=== PATIENT | male | born 1960 | race Caucasian/White ===

== ENCOUNTER → 2016-11-23 | Outpatient (CLI) | payer OTHER ==
[~2016-11-23] MED LIST: OMPR20CCR PO
[2016-11-23 08:21] LABS: HEMATOCRIT 44.2 % (39.0-51.0); MEAN CELL VOLUME 86.5 FL (80.0-100.0); MEAN CORPUSCULAR HGB CONC 34.6 % (32.0-36.0); PLATELET COUNT 175 TH/MM3 (150-450); RED BLOOD COUNT 5.11 MIL/MM3 (4.50-5.90); RED CELL DISTRIBUTION WIDTH 12.6 % (11.6-17.2); REVIEW FLAG FINAL; WHITE BLOOD COUNT 6.8 TH/MM3 (4.0-11.0)
[2016-11-23 08:56] LABS: ALKALINE PHOSPHATASE 61 U/L (45-117); ALT (GPT) 42 U/L (12-78); ANION GAP 7 MEQ/L (5-15); AST (GOT) 21 U/L (15-37); BICARBONATE 28.8 MEQ/L (21.0-32.0); BLOOD UREA NITROGEN 17 MG/DL (7-18); CHLORIDE 105 MEQ/L (98-107); GLOMERULAR FILTRATION RATE 86 ML/MIN (>89); GLUCOSE,FASTING 99 MG/DL (74-99); HDL CHOLESTEROL 51.9 MG/DL (40.0-60.0); LDL CHOLESTEROL 102 MG/DL (0-99); POTASSIUM 4.4 MEQ/L (3.5-5.1); SODIUM (NA) 141 MEQ/L (136-145); TOTAL BILIRUBIN ADULT 0.7 MG/DL (0.2-1.0)
== END ==
LOC: CLAB 07:53
PROVIDERS: ATTEND Family Medicine
DX: Z00.00 Encounter for general adult medical examination without abnormal findings (principal); Z12.5 Encounter for screening for malignant neoplasm of prostate
CPT/HCPCS: 36415; 80053; 80061; 84153; 84443; 85027

== ENCOUNTER → 2017-09-20 | Day surgery (SDC) | payer OTHER ==
[~2017-09-20] MED LIST changes: +LACTATED RINGER'S 1000 ML INJ 1,000 ML ONE; +LIDOCAINE HCL 1% 50 ML VIAL ONE; +MIDAZOLAM HCL 2 MG/2 ML VIAL ONE; +PROPOFOL 500 MG/50 ML BTL IV ONE; +TRIAMCINOLONE ACETONIDE 40 MG/ML VIAL ONE
--- NOTE | 2017-09-20 18:16 | TN ---
cc: EDUARDO JEAN M.D. DATE OF SURGERY 09/20/2017 PREOPERATIVE DIAGNOSIS Right hip osteoarthritis, arthrogryposis (stiffness). POSTOPERATIVE DIAGNOSIS Right hip osteoarthritis, arthrogryposis (stiffness). PROCEDURE Right hip intra-articular steroid injection, fluoroscopic guidance of needle, manipulation, under anesthesia. SURGEON Naomi Jean MD [facility] [employer]. SPECIMENS SENT None. ESTIMATED BLOOD LOSS None. COMPLICATIONS None. ANESTHESIA General. DRAINS None. CONDITION Stable. PLAN OF ACTIVITY As per orders. PROCEDURE DETAILS The patient was brought to the operating room and had satisfactory anesthesia by Dr. Agnes Wang of the department of anesthesia. The right hip and lower extremity was prepped and draped in usual sterile manner. Under fluoroscopic guidance an 18 gauge spinal needle was introduced in to the right hip joint. The hip was injected with 1 mL of Kenalog 40 and 5 mL of 1% lidocaine plain. The needle was withdrawn. The hip was manipulated under anesthesia. Flexion was to 110 degrees, abduction was to 35 degrees with mild restrictive rotation. Band-Aid placed over injection site. The patient tolerated the procedure well and arrived in the recovery room in stable and satisfactory condition. X-ray of the right hip one view AP status post right hip manipulation, no obvious fracture, dislocation, subluxation here. Right hip osteoarthritis, satisfactory placement of 18 gauge spinal needle in the right hip joint. MD PATTIE Wilkinson/ISSA /5:36 PM /6:07 PM
== END | disposition home or self-care (01) ==
LOC: ESDC 14:25
PROVIDERS: ATTEND Orthopaedic Surgery Orthopaedic Surgery of the Spine
DX: M16.11 Unilateral primary osteoarthritis, right hip (principal); Q68.8 Other specified congenital musculoskeletal deformities
CPT/HCPCS: 01200; 27275; 73501; 76000; J2250; J3010; J3301; J7120

== ENCOUNTER → 2018-02-02 | Outpatient (CLI) | payer OTHER ==
[~2018-02-02] MED LIST changes: -LACTATED RINGER'S 1000 ML INJ 1,000 ML ONE; -LIDOCAINE HCL 1% 50 ML VIAL ONE; -MIDAZOLAM HCL 2 MG/2 ML VIAL ONE; -PROPOFOL 500 MG/50 ML BTL IV ONE; -TRIAMCINOLONE ACETONIDE 40 MG/ML VIAL ONE
[2018-02-02 14:21] LABS: BASOPHIL % 0.6 % (0.0-2.0); EOSINOPHIL # 0.1 TH/MM3 (0-0.4); EOSINOPHIL % 1.7 % (0.0-4.0); HEMOGLOBIN 16.7 GM/DL (13.0-17.0); LYMPH % 26.2 % (9.0-44.0); LYMPHOCYTE # 1.6 TH/MM3 (1.0-4.8); MEAN CELL VOLUME 88.2 FL (80.0-100.0); MEAN PLATELET VOLUME 9.6 FL (7.0-11.0); MONO % 6.5 % (0.0-8.0); MONOCYTE # 0.4 TH/MM3 (0-0.9); PLATELET COUNT 196 TH/MM3 (150-450); RED BLOOD COUNT 5.55 MIL/MM3 (4.50-5.90); RED CELL DISTRIBUTION WIDTH 12.9 % (11.6-17.2); WHITE BLOOD COUNT 6.1 TH/MM3 (4.0-11.0)
[2018-02-02 14:51] LABS: AST (GOT) 68 U/L (15-37); BICARBONATE 27.8 MEQ/L (21.0-32.0); BLOOD UREA NITROGEN 15 MG/DL (7-18); CALCIUM 8.7 MG/DL (8.5-10.1); CHLORIDE 106 MEQ/L (98-107); CHOLESTEROL 162 MG/DL (120-200); CREATININE 0.93 MG/DL (0.60-1.30); GLOMERULAR FILTRATION RATE 83 ML/MIN (>89); GLUCOSE,FASTING 84 MG/DL (74-99); SODIUM (NA) 140 MEQ/L (136-145)
[2018-02-02 15:02] LABS: ALKALINE PHOSPHATASE 59 U/L (45-117); ALT (GPT) 139 U/L (12-78); CHOLESTEROL/ HDL RATIO 3.28 RATIO; HDL CHOLESTEROL 49.3 MG/DL (40.0-60.0); LDL CHOLESTEROL 103 MG/DL (0-99); TOTAL BILIRUBIN ADULT 0.9 MG/DL (0.2-1.0); TOTAL PROTEIN 7.5 GM/DL (6.4-8.2); TRIGLYCERIDES 51 MG/DL (42-150)
== END ==
LOC: PLAB 09:11
PROVIDERS: ATTEND Family Medicine
DX: Z00.00 Encounter for general adult medical examination without abnormal findings (principal); Z12.5 Encounter for screening for malignant neoplasm of prostate
CPT/HCPCS: 36415; 80053; 80061; 84153; 84443; 85025